=== PATIENT | female | born 1985 | race Caucasian/White ===

== ENCOUNTER → 2024-01-29 | Outpatient (CLI) | payer BC, SELFPAY ==
[2024-01-29 12:33] LABS: Absolute Lymphocyte Count 1.79 X10^3/uL (0.83-4.51); Absolute Neutrophil Count 4.3 X10^3/uL (2.0-7.7); Basophil# 0.01 X10^3/uL; Basophil% 0.1 % (0-1); Eosinophil# 0.13 X10^3/uL; Eosinophils% 1.9 % (0-5); Hematocrit 36.2 % (37-47); Hemoglobin 11.2 g/dL (12.0-15.0); Lymphocyte # 1.79 X10^3/ul (0.83-4.51); Lymphocyte % 26.7 % (19-41); Mean Corp Hgb Conc 30.9 g/dL (32-36); Mean Corpuscular Hgb 24.8 pg (27.0-32.0); Mean Corpuscular Volume 80.3 fL (81-99); Mean Platelet Vol. 10.4 fl (6.2-12.0); Monocyte# 0.45 X10^3/uL; Monocyte% 6.7 % (0-10); NRBC Flagged by Analyzer 0 % (0-5); Neutrophil # 4.31 X10^3/uL (2.7-7.7); Neutrophil % 64.3 % (47-70); Platelet Count 268 K/mm3 (150-450); RBC Distribution Width CV 13.6 % (11.6-14.6); RBC Distribution Width SD 39.7 fl (35.1-43.9); Red Blood Count 4.51 M/mm3 (4.2-5.4); White Blood Count 6.7 K/mm3 (4.4-11.0)
[2024-01-29 12:52] LABS: ALB/GLOB Ratio 0.8 RATIO (0.9-2.4); AST(SGOT) 15 U/L (15-37); Alanine Aminotransfer ALT/SGPT 21 U/L (13-56); Albumin, Serum 3.1 g/dL (3.2-5.0); Alkaline Phosphatase 114 U/L (45-117); Anion Gap 5 (5-15); BUN 7 mg/dL (7-18); BUN/Creat Ratio 10.7 RATIO (10-20); Calcium,Total 8.7 mg/dL (8.5-10.1); Chloride 107 mmol/L (98-107); Cholesterol 215 mg/dL (200); Creatinine, Serum 0.65 mg/dL (0.55-1.02); EST Glomerular Filtration Rate 109 mL/min (>60); Est Glom Filt Rate - Afr Amer 132 mL/min (>60); Globulin 3.7 g/dL (2.2-4.2); Glucose 84 mg/dL (74-106); High Density Lipoprotein 59 mg/dL; Protein, Total 6.8 g/dL (6.4-8.2); Sodium Level 136 mmol/L (136-145); T4 Free Direct 1.13 ng/dL (0.76-1.46); Triglycerides 146 mg/dL; Very Low Density Lipoprotein 29 mg/dL (5-40)
[2024-01-30 16:08] LABS: Anti-Thyroglobulin AB < 1.0 IU/mL (0.0-0.9); Thyroglobulin, Serum Qt. 2.8 ng/mL (1.5-38.5); Thyroid Peroxidase AB 199 IU/mL (0-34)
[2024-01-30 17:18] LABS: Vitamin B12 253 pg/mL (211-911)
[2024-01-30 17:20] LABS: Ferritin 4 ng/mL (8-252); Iron 30 ug/dL (50-170); Iron Binding Capacity,Total 548 ug/dL (250-450); PERCENT IRON SATURATION 5.5 % (15.0-55.0)
== END | disposition home or self-care (01) ==
LOC: MFPLAB 10:17
PROVIDERS: PCP Family Medicine; Referring Provider Family Medicine; Visit Provider Family Medicine
DX: E03.9 Hypothyroidism, unspecified (principal); D64.9 Anemia, unspecified
CPT/HCPCS: 36415; 80053; 80061; 82607; 82728; 83540; 83550; 84432; 84439; 84443; 85025; 86376; 86800

== ENCOUNTER → 2024-02-05 | Outpatient (CLI) | payer BC, SELFPAY ==
--- NOTE | 2024-02-05 15:25 | US_ITS ---
EXAM: US SOFT TISSUES HEAD AND NECK, THYROID CLINICAL INDICATION: hypothyroid, abnormal texture right side TECHNIQUE: Greyscale and color doppler imaging was performed of the thyroid gland. COMPARISON: No relevant prior studies available. FINDINGS: LEFT THYROID LOBE: The left thyroid lobe measures 3.0 x 1.1 x 0.9 cm. The left thyroid gland is diffusely heterogenous. Homogeneous echotexture with normal vascularity. No thyroid nodules are present. RIGHT THYROID LOBE: The right thyroid lobe measures 4.0 x 1.3 x 1.4 cm. The right thyroid gland is diffusely heterogenous. Homogeneous echotexture with normal vascularity. No thyroid nodules are present. ISTHMUS: The thyroid isthmus measures 0.2 cm. No thyroid nodules are present. US/Thyroid IMPRESSION: Thyroid heterogeneity. No thyromegaly. No discrete nodules identified. Electronically Signed: Timo Olmedo DO at 10:06 [facility] ,
== END | disposition home or self-care (01) ==
PROVIDERS: PCP Family Medicine; Referring Provider Family Medicine; Visit Provider Family Medicine
DX: E03.9 Hypothyroidism, unspecified (principal)
CPT/HCPCS: 76536

== ENCOUNTER → 2024-03-30 | Outpatient (CLI) | payer BC, SELFPAY ==
[2024-03-30 18:17] LABS: Absolute Lymphocyte Count 1.46 X10^3/uL (0.83-4.51); Absolute Neutrophil Count 4.4 X10^3/uL (2.0-7.7); Basophil# 0.01 X10^3/uL; Basophil% 0.2 % (0-1); Eosinophil# 0.08 X10^3/uL; Eosinophils% 1.2 % (0-5); Hematocrit 37.3 % (37-47); Hemoglobin 11.5 g/dL (12.0-15.0); Lymphocyte # 1.46 X10^3/ul (0.83-4.51); Lymphocyte % 22.5 % (19-41); Mean Corp Hgb Conc 30.8 g/dL (32-36); Mean Corpuscular Hgb 24.9 pg (27.0-32.0); Mean Corpuscular Volume 80.7 fL (81-99); Mean Platelet Vol. 10.3 fl (6.2-12.0); Monocyte# 0.51 X10^3/uL; Monocyte% 7.9 % (0-10); NRBC Flagged by Analyzer 0 % (0-5); Neutrophil # 4.41 X10^3/uL (2.7-7.7); Neutrophil % 67.9 % (47-70); Platelet Count 282 K/mm3 (150-450); RBC Distribution Width CV 14.5 % (11.6-14.6); RBC Distribution Width SD 42.1 fl (35.1-43.9); Red Blood Count 4.62 M/mm3 (4.2-5.4); White Blood Count 6.5 K/mm3 (4.4-11.0)
[2024-03-30 18:35] LABS: Ferritin 7 ng/mL (8-252); Iron 55 ug/dL (50-170); Iron Binding Capacity,Total 545 ug/dL (250-450); PERCENT IRON SATURATION 10.1 % (15.0-55.0)
== END | disposition home or self-care (01) ==
LOC: MFPLAB 15:12
PROVIDERS: PCP Family Medicine; Referring Provider Family Medicine; Visit Provider Family Medicine
DX: D50.9 Iron deficiency anemia, unspecified (principal)
CPT/HCPCS: 36415; 82728; 83540; 83550; 85025

== ENCOUNTER → 2024-12-29 | Outpatient (CLI) | payer BC, SELFPAY ==
[2024-12-29 17:50] LABS: Hematocrit 36.8 % (37-47); Hemoglobin 12.1 g/dL (12.0-15.0); Immature Granulocytes Count 0.010 X10^3/uL (0.0-0.0); Mean Corp Hgb Conc 32.9 g/dL (32-36); Mean Corpuscular Volume 83.4 fL (81-99); Mean Platelet Vol. 10.6 fl (6.2-12.0); NRBC Flagged by Analyzer 0 % (0-5); Platelet Count 227 K/mm3 (150-450); RBC Distribution Width CV 13.4 % (11.6-14.6); RBC Distribution Width SD 41.3 fl (35.1-43.9); Red Blood Count 4.41 M/mm3 (4.2-5.4); White Blood Count 5.6 K/mm3 (4.4-11.0)
[2024-12-29 18:29] LABS: AST(SGOT) 16 U/L (<=31); Alanine Aminotransfer ALT/SGPT 20 U/L (<=34); Albumin, Serum 4.2 g/dL (3.5-5.0); Alkaline Phosphatase 110 U/L (35-104); Anion Gap 11 (5-15); BUN 10 mg/dL (4-19); BUN/Creat Ratio 15.6 RATIO (10-20); Calcium,Total 9.3 mg/dL (7.6-11.0); Carbon Dioxide 24.5 mmol/L (21.0-32.0); Chloride 102 mmol/L (98-108); Globulin 2.9 g/dL (2.2-4.2); Glucose 88 mg/dL (70-99); Iron 93 ug/dL (50-170); Iron Binding Capacity,Unsat 367 ug/dL (228-428); Potassium 3.8 mmol/L (3.3-5.1); Vitamin B12 285 pg/mL (180-914)
[2024-12-29 18:30] LABS: FOLATES,SERUM (FOLIC ACID) 7.18 ng/mL (4.60-34.80)
[2024-12-29 18:54] LABS: Iron Binding Capacity,Total 460 ug/dL (250-450)
[2024-12-31 17:08] LABS: Immunoglobulin A 115 mg/dL (87-352)
== END | disposition home or self-care (01) ==
PROVIDERS: PCP Family Medicine; Visit Provider Family Medicine
DX: E06.3 Autoimmune thyroiditis (principal); D50.9 Iron deficiency anemia, unspecified
CPT/HCPCS: 36415; 80053; 82607; 82746; 82784; 83516; 83540; 83550; 84439; 84443; 85025; 86255

== ENCOUNTER → 2025-02-04 | Outpatient (CLI) | payer BC, SELFPAY ==
--- OUTSIDE RECORDS SUMMARY | 2025-02-04 11:37 | XMS RPT_ITS | CCD ---
Author Organization [facility] Care Team Providers Care Building Dismantler Name Role Phone Licha Lim Primary Care Provider Coretta Landon Attending Unavailable Coretta Landon Consulting Unavailable Request, Self Referring Unavailable Coretta Landon Primary Care Unavailable Coretta Landon Consulting Unavailable Coretta Landon Primary Care Unavailable Request, Self Referring Unavailable Coretta Landon Attending Unavailable Coretta Landon Attending Unavailable Coretta Landon Consulting Unavailable Coretta Landon Primary Care Unavailable Coretta Landon Consulting Unavailable Coretta Landon Attending Unavailable Coretta Landon Primary Care Unavailable Coretta Landon Consulting Unavailable Coretta Landon Attending Unavailable Coretta Landon Primary Care Unavailable Coretta Landon Consulting Unavailable Coretta Landon Attending Unavailable Coretta Landon Primary Care Unavailable Frank Solis Attending Unavailable Frank Solis Referring Unavailable Frank Solis Primary Care Unavailable Frank Solis Attending Unavailable Frank Solis Referring Unavailable Frank Solis Primary Care Unavailable Frank Solis Attending Unavailable Frank Solis Referring Unavailable Frank Solis Primary Care Unavailable No Family, Physician Primary Care Unavailable Allergies Allergy Classification Reported Allergen(s) Allergy Type Date of Onset Reaction(s) Facility (1 source) Amoxicillin Drug Allergy 12-01-19 16 [place], [place] (1 source) Cefaclor Drug Allergy 09-13-19 17 [place] (1 source) Penicillins Propensity to adverse reactions to drug 09-13-19 17 [place] (1 source) Sulfamethoxazole / Trimethoprim Drug Allergy 09-13-19 17 Other (See Comments) [place] (1 source) Amoxicillin-Pot Clavulanate Propensity to adverse reactions to drug 09-13-19 17 [place] (2 sources) Amoxicillin Drug Allergy 09-26-19 23 [facility] (2 sources) Cefaclor Drug Allergy 09-26-19 23 [facility] (2 sources) Clavulanate Drug Allergy 09-26-19 23 [facility] (2 sources) Penicillins Drug allergy (disorder) 09-26-19 23 [facility] (2 sources) Sulfamethoxazole Drug Allergy 09-26-19 23 [facility] (2 sources) Trimethoprim Drug Allergy 09-26-19 [facility] Medications Current Medications Medication Drug Class(es) Dates Sig (Normalized) Sig (Original) levothyroxine sodium 0.075 mg oral tablet (1 source) l-Thyroxine Start: 12-18-2019 take 1 tablet by mouth once daily levothyroxine (SYNTHROID) 75 MCG tablet Take 1 tablet by mouth daily 90 tablet 1 12/18/2019 Active Norgestimate-Eth Estradiol (SPRINTEC 28 PO) (1 source) Norgestimate-Eth Estradiol (SPRINTEC 28 PO) Take by mouth 0 Active Problems Active Problems Problem Classification Problem Date Documented Da te Episodic/Chronic Deficiency and other anemia (1 source) Iron deficiency anemia, unspecified; Translations: [Iron deficiency anemia, unspecified] Onset: 04-11-2024 Episodic Other non-traumatic joint disorders (1 source) Pain of left wrist; Translations: [Left wrist pain] Onset: 03-17-2019 03-17-2019 Thyroid disorders (4 sources) Acquired hypothyroidism; Translations: [Hypothyroidism, unspecified] Onset: 12-17-2019 12-17-2019 Chronic Unclassified (1 source) Finding of ; Translations: [Lactating mother] Onset: 09-12-2016 09-12-2016 Past or Other Problems Problem Classification Problem Date Documented Da te Episodic/Chronic Mycoses (1 source) Onychomycosis; Translations: [Onychomycosis] Onset: 09-12-2016 09-12-2016 Episodic Other hematologic conditions (1 source) H/O: anemia; Translations: [History of anemia] Onset: 09-12-2016 09-12-2016 Episodic Other nutritional; endocrine; and metabolic disorders (1 source) H/O: hypothyroidism; Translations: [History of hypothyroidism] Onset: 09-12-2016 09-12-2016 Episodic Other upper respiratory infections (1 source) Acute pharyngitis, unspecified; Translations: [Acute pharyngitis, unspecified] Onset: 10-10-2021 Episodic Residual codes; unclassified (1 source) Gestation period, 40 weeks; Translations: [40 weeks gestation of ] Onset: 12-01-2015 Resolved: 09-12-2016 09-12-2016 Episodic Unclassified (1 source) Patient encounter status; Translations: [Routine general medical examination at health care facility] Onset: 09-12-2016 Resolved: 11-05-2017 11-05-2017 Results Test Name Value Interpretation Reference Range Facil ity CBC W/Diff, Automatedon 03-13 Absolute Lymph 1.46 X10 3/uL Normal 0.83-4.51 [facility] Comment on above: Performed By: #### L 503.6030, L503.6550, L100.0100 #### [facility] [address] [place], [address] Absolute Neut 4.4 X10 3/uL Normal 2.0-7.7 [facility] Comment on above: Performed By: #### L 503.6030, L503.6550, L100.0100 #### [facility] [address] [place], [address] Basophils/100 WBC (Bld) 0.2 % Normal 0-1 [facility] Comment on above: Performed By: #### L 503.6030, L503.6550, L100.0100 #### [facility] [address] [place], [address] Eosinophils/100 WBC (Bld) 1.2 % Normal 0-5 [facility] Comment on above: Performed By: #### L 503.6030, L503.6550, L100.0100 #### [facility] [address] [place], [address] Erythrocyte distribution width (RBC) [Ratio] 14.5 % Normal 11.6-14.6 [facility] Comment on above: Performed By: #### L 503.6030, L503.6550, L100.0100 #### [facility] [address] [place], [address] Hematocrit (Bld) [Volume fraction] 37.3 % Normal 37-47 [facility] Comment on above: Performed By: #### L 503.6030, L503.6550, L100.0100 #### [facility] [address] [place], [address] Hemoglobin (Bld) [Mass/Vol] 11.5 g/dL Low 12.0-15.0 [facility] Comment on above: Performed By: #### L 503.6030, L503.6550, L100.0100 #### [facility] [address] [place], [address] IG% 0.300 Normal 0.0-0.9 [facility] Comment on above: Result Comment: IG% - Immature Granulocytes (promyelocytes, myelocytes and metamyelocytes) > 1% indicates that a LEFT SHIFT is Present. Performed By: #### L 503.6030, L503.6550, L100.0100 #### [facility] [address] [place], [address] Lymphocytes/100 WBC (Bld) 22.5 % Normal 19-41 [facility] Comment on above: Performed By: #### L 503.6030, L503.6550, L100.0100 #### [facility] [address] [place], [address] MCH (RBC) [Entitic mass] 24.9 pg Low 27.0-32.0 [facility] Comment on above: Performed By: #### L 503.6030, L503.6550, L100.0100 #### [facility] [address] [place], [address] MCHC (RBC) [Mass/Vol] 30.8 g/dL Low 32-36 [facility] Comment on above: Performed By: #### L 503.6030, L503.6550, L100.0100 #### [facility] [address] [place], [address] MCV (RBC) [Entitic vol] 80.7 fL Low 81-99 [facility] Comment on above: Performed By: #### L 503.6030, L503.6550, L100.0100 #### [facility] [address] [place], [address] Monocytes/100 WBC (Bld) 7.9 % Normal 0-10 [facility] Comment on above: Performed By: #### L 503.6030, L503.6550, L100.0100 #### [facility] [address] [place], [address] Neutrophils/100 WBC (Bld) 67.9 % Normal 47-70 [facility] Comment on above: Performed By: #### L 503.6030, L503.6550, L100.0100 #### [facility] [address] [place], [address] Nucleated RBC (Bld) [#/Vol] 0 10*3/uL Normal 0-5 [facility] Comment on above: Performed By: #### L 503.6030, L503.6550, L100.0100 #### [facility] [address] [place], [address] Platelet mean volume (Bld) [Entitic vol] 10.3 fL Normal 6.2-12.0 [facility] Comment on above: Performed By: #### L 503.6030, L503.6550, L100.0100 #### [facility] [address] [place], [address] Platelets (Bld) [#/Vol] 282 10*3/uL Normal 150-450 [facility] Comment on above: Performed By: #### L 503.6030, L503.6550, L100.0100 #### [facility] [address] [place], [address] RBC (Bld) [#/Vol] 4.62 10*6/uL Normal 4.2-5.4 [facility] Comment on above: Performed By: #### L 503.6030, L503.6550, L100.0100 #### [facility] [address] [place], [address] RDW SD 42.1 fl Normal 35.1-43.9 [facility] Comment on above: Performed By: #### L 503.6030, L503.6550, L100.0100 #### [facility] [address] [place], [address] WBC (Bld) [#/Vol] 6.5 10*3/uL Normal 4.4-11.0 [facility] Comment on above: Performed By: #### L 503.6030, L503.6550, L100.0100 #### [facility] [address] [place], [address] Ferritinon 03-30-2024 Ferritin [Mass/Vol] 7 ng/mL Low 8-252 [facility] Comment on above: Performed By: #### L 503.6030, L503.6550, L100.0100 #### [facility] [address] [place], [address] Iron+Iron Binding Capacityon 03-30-2024 Iron [Mass/Vol] 55 ug/dL Normal 50-170 [facility] Comment on above: Performed By: #### L 503.6030, L503.6550, L100.0100 #### [facility] [address] [place], [address] IRON SATURATION 10.1 Low 15.0-55.0 [facility] Comment on above: Performed By: #### L 503.6030, L503.6550, L100.0100 #### [facility] [address] [place], [address] TIBC 545 ug/dL High 250-450 [facility] Comment on above: Performed By: #### L 503.6030, L503.6550, L100.0100 #### [facility] [address] [place], [address] Thyroidon 02-05-2024 Thyroid [facility] [address] [place] [address] Thyroid MR#: [id number] Acct: [id number] Name: MAYLIN CALLAWAY Rep #: [id number] : 1985 F 38 From: Timo sam DO PCP: Dr. Frank Solis MD Status: [facility] Study: Thyroid Date of Exam: 02/05/24 Exam# [id number] Ordering Dr: Frank Solis MD [id number] EXAM: US SOFT TISSUES HEAD AND NECK, THYROID CLINICAL INDICATION: hypothyroid, abnormal texture right side TECHNIQUE: Greyscale and color doppler imaging was performed of the thyroid gland. COMPARISON: No relevant prior studies available. FINDINGS: LEFT THYROID LOBE: The left thyroid lobe measures 3.0 x 1.1 x 0.9 cm. The left thyroid gland is diffusely heterogenous. Homogeneous echotexture with normal vascularity. No thyroid nodules are present. RIGHT THYROID LOBE: The right thyroid lobe measures 4.0 x 1.3 x 1.4 cm. The right thyroid gland is diffusely heterogenous. Homogeneous echotexture with normal vascularity. No thyroid nodules are present. ISTHMUS: The thyroid isthmus measures 0.2 cm. No thyroid nodules are present. US/Thyroid IMPRESSION: Thyroid heterogeneity. No thyromegaly. No discrete nodules identified. Electronically Signed: Timo Olmedo, at 10:06 EST , CC: Dr. Frank Solis MD Fitter Helper: Signed Normal [facility] Ferritinon 01-30-2024 Ferritin [Mass/Vol] 4 ng/mL Low 8-252 [facility] Comment on above: Order Comment: SERA Deutsch ADD B12 BETHANY IBC TO BLOOD DRAWN 01/29/24Order Date: 01/27/24Order Info: [id number] - CMPOrder Info: [id number] - LIPIDOrder Info: [id number] - TSHOrder Info: [id number] - T4F Performed By: #### L 503.6030, L503.6550, L100.0100 #### [facility] [address] [place], [place], [address] Iron+Iron Binding Capacityon 01-30-2024 Iron [Mass/Vol] 30 ug/dL Low 50-170 [facility] Comment on above: Order Comment: SERA Deutsch ADD B12 BETHANY IBC TO BLOOD DRAWN 01/29/24Order Date: 01/27/24Order Info: [id number] - CMPOrder Info: [id number] - LIPIDOrder Info: [id number] - TSHOrder Info: [id number] - T4F Performed By: #### L 503.6030, L503.6550, L100.0100 #### [facility] [address] [place], [place], [address] IRON SATURATION 5.5 Low 15.0-55.0 [facility] Comment on above: Order Comment: SERA Deutsch ADD B12 BETHANY IBC TO BLOOD DRAWN 01/29/24Order Date: 01/27/24Order Info: [id number] - CMPOrder Info: [id number] - LIPIDOrder Info: [id number] - TSHOrder Info: [id number] - T4F Performed By: #### L 503.6030, L503.6550, L100.0100 #### [facility] [address] [place], [address] TIBC 548 ug/dL High 250-450 [facility] Comment on above: Order Comment: SERA Deutsch ADD B12 BETHANY IBC TO BLOOD DRAWN 01/29/24Order Date: 01/27/24Order Info: [id number] - CMPOrder Info: [id number] - LIPIDOrder Info: [id number] - TSHOrder Info: 7 - T4F Performed By: #### L 503.6030, L503.6550, L100.0100 #### [facility] [address] [place], [address] Thyroglobulin w/Anti-TG ABon 01-30-2024 Anti-TG AB < 1.0 Normal 0.0-0.9 [facility] Comment on above: Result Comment: Thyr oglobulin Antibody measured by Ivan Adrian Methodology It should be noted that the presence of thyroglobulin antibodies may not be pathogenic nor diagnostic, especially at very low levels. The assay men's garment fitter has found that four percent of individuals without evidence of thyroid disease or autoimmunity will have positive TgAb levels up to 4 IU/mL. Performed By: #### L 503.6030, L503.0105, L3300.6820, L3300.6900, L503.6550 #### [facility] [address], [address] THYROGLOB QUANT 2.8 ng/mL Normal 1.5-38.5 [facility] Comment on above: Result Comment: Acco rding to the National Academy of Clinical Biochemistry, the reference interval for Thyroglobulin (TG) should be related to euthyroid patients and not for patients who underwent thyroidectomy. TG reference intervals for these patients depend on the residual mass of the thyroid tissue left after surgery. Establishing a post-operative baseline is recommended. The assay limit of quantitation is 0.1 ng/mL Thyroglobulin measured by Ivan Adrian Immunometric Assay Performed By: #### L 503.6030, L503.0105, L3300.6820, L3300.6900, L503.6550 #### [facility] [address] [place], [place], [address] Thyroid Peroxidase ABon 12-2 THYR PEROX AB 199 IU/mL High 0-34 [facility] Comment on above: Result Comment: Perf ormed at: [facility] [id number] Logistics Planning Engineer: Brennan Alvarado PhD, Phone: [phone] Performed By: #### L 503.6030, L503.0105, L3300.6820, L3300.6900, L503.6550 #### [facility] [address] [place], [place], [address] Vitamin B12on 01-30-2024 Cobalamin (Vitamin B12) [Mass/Vol] 253 pg/mL Normal 211-911 [facility] Comment on above: Performed By: #### L 503.6030, L503.6550, L100.0100 #### [facility] [address] [place], [place], [address] CBC W/Diff, Automatedon 01-10 Absolute Lymph 1.79 X10 3/uL Normal 0.83-4.51 [facility] Comment on above: Order Comment: Order Date: 01/27/24 Order Info: [id number] - CBCD Performed By: #### L 501.9520, L506.0400, L500.4100, L500.4050, L100.0100 #### [facility] [address] [place], [address] Absolute Neut 4.3 X10 3/uL Normal 2.0-7.7 [facility] Comment on above: Order Comment: Order Date: 01/27/24 Order Info: [id number]- - CBCD Performed By: #### L 501.9520, L506.0400, L500.4100, L500.4050, L100.0100 #### [facility] [address] [place], [address] Basophils/100 WBC (Bld) 0.1 % Normal 0-1 [facility] Comment on above: Order Comment: Order Date: 01/27/24 Order Info: 018- - CBCD Performed By: #### L 501.9520, L506.0400, L500.4100, L500.4050, L100.0100 #### [facility] [address] [place], [address] Eosinophils/100 WBC (Bld) 1.9 % Normal 0-5 [facility] Comment on above: Order Comment: Order Date: 01/27/24 Order Info: 018- - CBCD Performed By: #### L 501.9520, L506.0400, L500.4100, L500.4050, L100.0100 #### [facility] [address] [place], [address] Erythrocyte distribution width (RBC) [Ratio] 13.6 % Normal 11.6-14.6 [facility] Comment on above: Order Comment: Order Date: 01/27/24 Order Info: 018- - CBCD Performed By: #### L 501.9520, L506.0400, L500.4100, L500.4050, L100.0100 #### [facility] [address] [place], [address] Hematocrit (Bld) [Volume fraction] 36.2 % Low 37-47 [facility] Comment on above: Order Comment: Order Date: 01/27/24 Order Info: [id number] - CBCD Performed By: #### L 501.9520, L506.0400, L500.4100, L500.4050, L100.0100 #### [facility] [address] [place], [address] Hemoglobin (Bld) [Mass/Vol] 11.2 g/dL Low 12.0-15.0 [facility] Comment on above: Order Comment: Order Date: 01/27/24 Order Info: [id number] - CBCD Performed By: #### L 501.9520, L506.0400, L500.4100, L500.4050, L100.0100 #### [facility] [address] [place], [address] IG% 0.300 Normal 0.0-0.9 [facility] Comment on above: Order Comment: Order Date: 01/27/24 Order Info: 018- - CBCD Result Comment: IG% - Immature Granulocytes (promyelocytes, myelocytes and metamyelocytes) > 1% indicates that a LEFT SHIFT is Present. Performed By: #### L 501.9520, L506.0400, L500.4100, L500.4050, L100.0100 #### [facility] [address] [place], [address] Lymphocytes/100 WBC (Bld) 26.7 % Normal 19-41 [facility] Comment on above: Order Comment: Order Date: 01/27/24 Order Info: [id number]- - CBCD Performed By: #### L 501.9520, L506.0400, L500.4100, L500.4050, L100.0100 #### [facility] [address] [place], [address] MCH (RBC) [Entitic mass] 24.8 pg Low 27.0-32.0 [facility] Comment on above: Order Comment: Order Date: 01/27/24 Order Info: [id number] - CBCD Performed By: #### L 501.9520, L506.0400, L500.4100, L500.4050, L100.0100 #### [facility] [address] [place], [address] MCHC (RBC) [Mass/Vol] 30.9 g/dL Low 32-36 [facility] Comment on above: Order Comment: Order Date: 01/27/24 Order Info: [id number] - CBCD Performed By: #### L 501.9520, L506.0400, L500.4100, L500.4050, L100.0100 #### [facility] [address] [place], [address] MCV (RBC) [Entitic vol] 80.3 fL Low 81-99 [facility] Comment on above: Order Comment: Order Date: 01/27/24 Order Info: 018- - CBCD Performed By: #### L 501.9520, L506.0400, L500.4100, L500.4050, L100.0100 #### [facility] [address] [place], [address] Monocytes/100 WBC (Bld) 6.7 % Normal 0-10 [facility] Comment on above: Order Comment: Order Date: 01/27/24 Order Info: 018- - CBCD Performed By: #### L 501.9520, L506.0400, L500.4100, L500.4050, L100.0100 #### [facility] [address] [place], [address] Neutrophils/100 WBC (Bld) 64.3 % Normal 47-70 [facility] Comment on above: Order Comment: Order Date: 01/27/24 Order Info: 0184- - CBCD Performed By: #### L 501.9520, L506.0400, L500.4100, L500.4050, L100.0100 #### [facility] [address] [place], [address] Nucleated RBC (Bld) [#/Vol] 0 10*3/uL Normal 0-5 [facility] Comment on above: Order Comment: Order Date: 01/27/24 Order Info: [id number] - CBCD Performed By: #### L 501.9520, L506.0400, L500.4100, L500.4050, L100.0100 #### [facility] [address] [place], [address] Platelet mean volume (Bld) [Entitic vol] 10.4 fL Normal 6.2-12.0 [facility] Comment on above: Order Comment: Order Date: 01/27/24 Order Info: [id number] - CBCD Performed By: #### L 501.9520, L506.0400, L500.4100, L500.4050, L100.0100 #### [facility] [address] [place], [address] Platelets (Bld) [#/Vol] 268 10*3/uL Normal 150-450 [facility] Comment on above: Order Comment: Order Date: 01/27/24 Order Info: 0184- - CBCD Performed By: #### L 501.9520, L506.0400, L500.4100, L500.4050, L100.0100 #### [facility] [address] [place], [address] RBC (Bld) [#/Vol] 4.51 10*6/uL Normal 4.2-5.4 [facility] Comment on above: Order Comment: Order Date: 01/27/24 Order Info: 0184- - CBCD Performed By: #### L 501.9520, L506.0400, L500.4100, L500.4050, L100.0100 #### [facility] [address] [place], [address] RDW SD 39.7 fl Normal 35.1-43.9 [facility] Comment on above: Order Comment: Order Date: 01/27/24 Order Info: 0184- - CBCD Performed By: #### L 501.9520, L506.0400, L500.4100, L500.4050, L100.0100 #### [facility] [address] [place], [place], [address] WBC (Bld) [#/Vol] 6.7 10*3/uL Normal 4.4-11.0 [facility] Comment on above: Order Comment: Order Date: 01/27/24 Order Info: [id number] - CBCD Performed By: #### L 501.9520, L506.0400, L500.4100, L500.4050, L100.0100 #### [facility] [address] [place], [address] Comprehensive Metabolic Prof ilon 01-29-2024 Albumin [Mass/Vol] 3.1 g/dL Low 3.2-5.0 [facility] Comment on above: Order Comment: Order Date: 01/27/24 Order Info: [id number] - CMP Order Info: [id number] - LIPID Order Info: [id number] - TSH Order Info: [id number] - T4F Performed By: #### L 501.9520, L506.0400, L500.4100, L500.4050, L100.0100 #### [facility] [address] [place], [address] Albumin/Globulin [Mass ratio] 0.8 {ratio} Low 0.9-2.4 [facility] Comment on above: Order Comment: Order Date: 01/27/24 Order Info: [id number] - CMP Order Info: [id number] - LIPID Order Info: [id number] - TSH Order Info: [id number] - T4F Performed By: #### L 501.9520, L506.0400, L500.4100, L500.4050, L100.0100 #### [facility] [address] [place], [place], [address] ALK P 114 U/L Normal 45-117 [facility] Comment on above: Order Comment: Order Date: 01/27/24 Order Info: [id number] - CMP Order Info: [id number] - LIPID Order Info: [id number] - TSH Order Info: [id number] - T4F Performed By: #### L 501.9520, L506.0400, L500.4100, L500.4050, L100.0100 #### [facility] [address] [place], [address] ALT [Catalytic activity/Vol] 21 U/L Normal 13-56 [facility] Comment on above: Order Comment: Order Date: 01/27/24 Order Info: [id number] - CMP Order Info: [id number] - LIPID Order Info: [id number] - TSH Order Info: [id number] - T4F Performed By: #### L 501.9520, L506.0400, L500.4100, L500.4050, L100.0100 #### [facility] [address] [place], [address] AST [Catalytic activity/Vol] 15 U/L Normal 15-37 [facility] Comment on above: Order Comment: Order Date: 01/27/24 Order Info: 86-1 - CMP Order Info: [id number] - LIPID Order Info: [id number] - TSH Order Info: [id number] - T4F Performed By: #### L 501.9520, L506.0400, L500.4100, L500.4050, L100.0100 #### [facility] [address] [place], [address] Bilirubin [Mass/Vol] 0.40 mg/dL Normal 0.20-1.00 [facility] Comment on above: Order Comment: Order Date: 01/27/24 Order Info: 0786-1 - CMP Order Info: [id number] - LIPID Order Info: 3016-3 - TSH Order Info: 3024-7 - T4F Result Comment: For patients on eltrombopag therapy, use of Dimension [place] TBIL is not recommended. Performed By: #### L 501.9520, L506.0400, L500.4100, L500.4050, L100.0100 #### [facility] [address] [place], [address] BUN/CRE 10.7 RATIO Normal 10-20 [facility] Comment on above: Order Comment: Order Date: 01/27/24 Order Info: 785-1 - CMP Order Info: [id number] - LIPID Order Info: [id number] - TSH Order Info: 3024-7 - T4F Performed By: #### L 501.9520, L506.0400, L500.4100, L500.4050, L100.0100 #### [facility] [address] [place], [address] CA,Total 8.7 mg/dL Normal 8.5-10.1 [facility] Comment on above: Order Comment: Order Date: 01/27/24 Order Info: 785-1 - CMP Order Info: [id number] - LIPID Order Info: 3 - TSH Order Info: 3024-7 - T4F Performed By: #### L 501.9520, L506.0400, L500.4100, L500.4050, L100.0100 #### [facility] [address] [place], [address] Chloride [Moles/Vol] 107 mmol/L Normal 98-107 [facility] Comment on above: Order Comment: Order Date: 01/27/24 Order Info: 785- - CMP Order Info: [id number] - LIPID Order Info: 3013 - TSH Order Info: 3024-7 - T4F Performed By: #### L 501.9520, L506.0400, L500.4100, L500.4050, L100.0100 #### [facility] [address] [place], [address] CO2 [Moles/Vol] 25.0 mmol/L Normal 21.0-32.0 [facility] Comment on above: Order Comment: Order Date: 01/27/24 Order Info: 07-1 - CMP Order Info: [id number] - LIPID Order Info: 3013 - TSH Order Info: 3024-7 - T4F Performed By: #### L 501.9520, L506.0400, L500.4100, L500.4050, L100.0100 #### [facility] [address] [place], [place], [address] Creatinine [Mass/Vol] 0.65 mg/dL Normal 0.55-1.02 [facility] Comment on above: Order Comment: Order Date: 01/27/24 Order Info: 785-1 - CMP Order Info: [id number] - LIPID Order Info: 3 - TSH Order Info: 3023-08 - T4F Result Comment: The validity of the calculated GFR GFRAA in patients over 70 years has not been determined. Clinical correlation is essential. Performed By: #### L 501.9520, L506.0400, L500.4100, L500.4050, L100.0100 #### [facility] [address] [place], [place], [id number] EST GFR - AA 132 mL/min Normal >60 [facility] Comment on above: Order Comment: Order Date: 01/27/24 Order Info: 785-02 - CMP Order Info: - LIPID Order Info: [id number] - TSH Order Info: 3023-08 - T4F Result Comment: Afri can [place] GFR Calc Performed By: #### L 501.9520, L506.0400, L500.4100, L500.4050, L100.0100 #### [facility] [address] [place], [address] GAP 5 Normal 5-15 [facility] Comment on above: Order Comment: Order Date: 01/27/24 Order Info: 785-02 - CMP Order Info: - LIPID Order Info: 3 - TSH Order Info: 3023-08 - T4F Performed By: #### L 501.9520, L506.0400, L500.4100, L500.4050, L100.0100 #### [facility] [address] [place], [address] GFR/1.73 sq M.predicted among non-blacks MDRD (S/P/Bld) [Vol rate/Area] 109 mL/min/{1.73_m2} Normal >60 [facility] Comment on above: Order Comment: Order Date: 01/27/24 Order Info: 0786-1 - CMP Order Info: [id number] - LIPID Order Info: [id number] - TSH Order Info: 3024-7 - T4F Result Comment: Non- GFR Calc Performed By: #### L 501.9520, L506.0400, L500.4100, L500.4050, L100.0100 #### [facility] [address] [place], [address] Globulin (S) [Mass/Vol] 3.7 g/dL Normal 2.2-4.2 [facility] Comment on above: Order Comment: Order Date: 01/27/24 Order Info: 07-1 - CMP Order Info: [id number] - LIPID Order Info: 6-3 - TSH Order Info: 3024-7 - T4F Performed By: #### L 501.9520, L506.0400, L500.4100, L500.4050, L100.0100 #### [facility] [address] [place], [address] Glucose [Mass/Vol] 84 mg/dL Normal 74-106 [facility] Comment on above: Order Comment: Order Date: 01/27/24 Order Info: 0786-1 - CMP Order Info: [id number] - LIPID Order Info: 3016-3 - TSH Order Info: 3024-7 - T4F Performed By: #### L 501.9520, L506.0400, L500.4100, L500.4050, L100.0100 #### [facility] [address] [place], [address] Potassium [Moles/Vol] 4.0 mmol/L Normal 3.5-5.1 [facility] Comment on above: Order Comment: Order Date: 01/27/24 Order Info: 785-1 - CMP Order Info: [id number] - LIPID Order Info: [id number] - TSH Order Info: 3024-7 - T4F Performed By: #### L 501.9520, L506.0400, L500.4100, L500.4050, L100.0100 #### [facility] [address] [place], [address] Sodium [Moles/Vol] 136 mmol/L Normal 136-145 [facility] Comment on above: Order Comment: Order Date: 01/27/24 Order Info: 785- - CMP Order Info: [id number] - LIPID Order Info: 3 - TSH Order Info: 3024-7 - T4F Performed By: #### L 501.9520, L506.0400, L500.4100, L500.4050, L100.0100 #### [facility] [address] [place], [address] T PROT 6.8 g/dL Normal 6.4-8.2 [facility] Comment on above: Order Comment: Order Date: 01/27/24 Order Info: 785- - CMP Order Info: [id number] - LIPID Order Info: [id number] - TSH Order Info: 3024-7 - T4F Performed By: #### L 501.9520, L506.0400, L500.4100, L500.4050, L100.0100 #### [facility] [address] [place], [address] Urea nitrogen [Mass/Vol] 7 mg/dL Normal 7-18 [facility] Comment on above: Order Comment: Order Date: 01/27/24 Order Info: 07-1 - CMP Order Info: [id number] - LIPID Order Info: [id number] - TSH Order Info: 3024-7 - T4F Performed By: #### L 501.9520, L506.0400, L500.4100, L500.4050, L100.0100 #### [facility] [address] [place], [address] Lipid Profileon 01-29-2024 Cholesterol [Mass/Vol] 215 mg/dL High 200 [facility] Comment on above: Order Comment: Order Date: 01/27/24 Order Info: 785-1 - CMP Order Info: [id number] - LIPID Order Info: 3 - TSH Order Info: 3023-08 - T4F Result Comment: <200 mg/dL Desirable 200-240 mg/dL Borderline >240 mg/dL High Risk Performed By: #### L 501.9520, L506.0400, L500.4100, L500.4050, L100.0100 #### [facility] [address] [place], [address] Cholesterol in HDL [Mass/Vol] 59 mg/dL Normal [facility] Comment on above: Order Comment: Order Date: 01/27/24 Order Info: 785-02 - CMP Order Info: - LIPID Order Info: [id number] - TSH Order Info: 3023-08 T4F Result Comment: The drugs N-Acetylcysteine and Metamizole may falsely depress this assay. Reference Range HDL <40 mg/dL Low HDL Cholesterol HDL >or= 60 mg/dL High HDL Cholesterol Performed By: #### L 501.9520, L506.0400, L500.4100, L500.4050, L100.0100 #### [facility] [address] [place], [address] Cholesterol in LDL [Mass/Vol] 127 mg/dL Normal 0-130 [facility] Comment on above: Order Comment: Order Date: 01/27/24 Order Info: 785-02 - CMP Order Info: - LIPID Order Info: 3 - TSH Order Info: 3023-08 T4F Performed By: #### L 501.9520, L506.0400, L500.4100, L500.4050, L100.0100 #### [facility] [address] [place], [address] Cholesterol in VLDL [Mass/Vol] 29 mg/dL Normal 5-40 [facility] Comment on above: Order Comment: Order Date: 01/27/24 Order Info: 0786- - CMP Order Info: [id number] - LIPID Order Info: 6-3 - TSH Order Info: 7 - T4F Performed By: #### L 501.9520, L506.0400, L500.4100, L500.4050, L100.0100 #### [facility] [address] [place], [address] Triglyceride [Mass/Vol] 146 mg/dL Normal [facility] Comment on above: Order Comment: Order Date: 01/27/24 Order Info: 07 - CMP Order Info: - LIPID Order Info: 3 - TSH Order Info: 7 - T4F Result Comment: The drugs N-Acetylcysteine and Metamizole may falsely depress this assay. Serum Triglycerides Reference Interval Normal <150 mg/dL Borderline high 150 - 199 mg/dL High 200 - 499 mg/dL Very High > or = 500 mg/dL Performed By: #### L 501.9520, L506.0400, L500.4100, L500.4050, L100.0100 #### [facility] [address] [place], [address] T4 Free Directon 01-29-2024 T4 FREE DIRECT 1.13 ng/dL Normal 0.76-1.46 [facility] Comment on above: Order Comment: Order Date: 01/27/24 Order Info: 0786 - CMP Order Info: [id number] - LIPID Order Info: [id number] - TSH Order Info: 7 - T4F Performed By: #### L 501.9520, L506.0400, L500.4100, L500.4050, L100.0100 #### [facility] [address] [place], [address] Thyroid Stim Hormone (TSH)on 01-29-2024 TSH 5.020 uIU/mL High 0.358-3.740 [facility] Comment on above: Order Comment: Order Date: 01/27/24 Order Info: 0786-1 - CMP Order Info: [id number] - LIPID Order Info: [id number] - TSH Order Info: 3024-7 - T4F Performed By: #### L 501.9520, L506.0400, L500.4100, L500.4050, L100.0100 #### [facility] [address] [place], [address] THYROID STIMULATING HORMONEo n 02-14-2023 THYROID STIMULATING HORMONE 4.00 uIU/mL Normal 0.27-4.20 [facility] Comment on above: Performed By: #### T SH #### [facility] CLIA:[id number] [address] [place] [address] FREE T4 (FREE THYROXINE)on Free T4 [Mass/Vol] 1.20 ng/dL Normal 0.93-1.7 [facility] Comment on above: Performed By: #### T 4F, TSH #### [facility] CLIA:[id number] [address] [place] [address] THYROID STIMULATING HORMONEo n 11-22-2022 THYROID STIMULATING HORMONE 4.91 uIU/mL High 0.27-4.20 [facility] Comment on above: Performed By: #### T 4F, TSH #### [facility] CLIA:[id number] [address] [place] [address] FREE T4 (FREE THYROXINE)on 0 09-25-2022 Free T4 [Mass/Vol] 1.19 ng/dL Normal 0.93-1.7 [facility] Comment on above: Performed By: #### T SH, T4F #### [facility] CLIA:[id number] [address] [place] [address] THYROID STIMULATING HORMONEo n 09-25-2022 THYROID STIMULATING HORMONE 6.11 uIU/mL High 0.27-4.20 [facility] Comment on above: Performed By: #### T SH, T4F #### [facility] CLIA:[id number] [address] [place] [address] Encounters Encounter Date Encounter Type Care Provider Facility Start: 09-08-2024 ambulatory Physician Olya [facility] Start: 03-30-2024 End: 03-30-2024 ambulatory [facility] Facility:[facility] Start: 02-05-2024 End: 02-05-2024 ambulatory [facility] Facility:[facility] Start: 01-29-2024 End: 01-29-2024 ambulatory [facility] Facility:[facility] Start: 02-14-2023 End: 02-14-2023 ambulatory [facility] Facility:[facility] Start: 11-22-2022 End: 11-22-2022 ambulatory [facility] Facility:[facility] Start: 09-25-2022 End: 09-25-2022 ambulatory Coretta Landon Facility:[facility] Start: 09-25-2022 Encounter for genera l adult medical examination without abnormal findings Coretta Landon [facility] Start: 08-20-2022 ambulatory Coretta Landon Facility :[facility] Start: 10-10-2021 End: 10-10-2021 ambulatory Coretta Landon Facility:[facility] Start: 02-21-2020 End: 02-21-2020 Subsequent hospital visit by physician Licha Lim [facility] Plan of Treatment Date Care Activity Detail Author Start: 09-12-2026 DTaP/Tdap/Td vaccine (2 - Td) DTaP/Tdap/Td vaccine (2 - Td) [place] Start: 01-28-2023 Screening for malign ant neoplasm of cervix Cervical cancer screen [place], [place] Start: 12-16-2020 TSH Qn TSH testing [place], [place] Start: 06-22-2020 End: 06-22-2020 Office Visit 06/22/2020 Office Visit Family [facility] Licha Lim, 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 [address] [place] [address] [phone] [facility] Start: 10-12-2019 Influenza vaccination Flu vaccine (# 1) [place], [place] Start: 1988 Varicella vaccine (1 of 2 - 2-dose childhood series) Varicella vaccine (1 of 2 - 2-dose childhood series) [place], [place] Start: 1987 Hepatitis C screening Hepatitis C sc [facility] [place], [place] End: 02-21-2020 Human papillomavirus (HPV) DNA probe cervical brush high risk Human papillomavirus (HPV) DNA probe cervical brush high risk Lab Routine Once for 1 Occurrences starting 02/21/2020 until 02/21/2020 [place] Comment on above: Once for 1 Occurrenc es starting 02/21/2020 until 02/21/2020 Human papillomavirus (HPV) DNA probe cervical brush high risk Human papillomavirus (HPV) DNA probe cervical brush high risk Lab Routine 02/21/2020 9:00 AM EST [place] Immunizations Immunization Date Immunization Notes Care Provider Fa paloma 09-12-2016 tetanus toxoid, redu mary lou diphtheria toxoid, and acellular pertussis vaccine, adsorbed Lichaapple Lim [place], [place] Payers Date Payer Category Payer Unknown [id number] 2024 Unknown [id number] 2021 Self-pay 2021 Medicaid [id number] 2019 Unknown [id number] 2016 Unknown [id number] 1. [id number] 1987 Unknown [id number] 2.16. [id number] Unknown [id number] 2.16.8 [id number] Unknown [id number] 2.16.8 [id number] Unknown [id number] 2.16.8 [id number] Unknown [id number] 2.16.8 [id number] Unknown [id number] 2.16.8 [id number] Unknown [id number] 2.16.8 [id number] Unknown [id number] 2.16.8 40.1.647136.3.579.2.462 Unknown [id number] 2.16.8 [id number] Unknown [id number] 2.16.8 [id number] Social History Date Type Detail Facility [facility] [place] Start: 12-17-2019 Tobacco use and exposure Never used [place] Start: 12-17-2019 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 intake 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) [place] Sex Assigned At Not on file [place] Advance Directives No Advanced Directives Records FoundDocuments on File Type Date Recorded Patient Seo Professional Expl anation ACP-Advance Directive ACP-Power of Superintendent Building Latest Code Status on File Code Status Date Activated Date Inactivated Comments Full Code 12/02/2015 1:53 AM 12/03/2015 2:12 PM Full Code 12/01/2015 9:20 AM 12/02/2015 1:53 AM Summary Purpose Family History No Family History Records FoundNo Family History Records FoundNo Family History Records FoundNo Family History Records Found Additional Source Comments INFORMATION SOURCE (unrecogn ized section and content) DATE CREATED AUTHOR 09/26/2022 [facility] DATE CREATED AUTHOR AUTHOR'S ORGANIZ ATION [facility]20[facility] DATE CREATED AUTHOR AUTHOR'S ORGANIZ ATION 04/12/2024 [facility] DATE CREATED AUTHOR AUTHOR'S ORGANIZ ATION 09/11/2024 [facility] ulatory FOR RECORDS PERTAINING TO PATIENTS WHO ARE OR HAVE BEEN ENROLLED IN A CHEMICAL DEPENDENCY/SUBSTANCEABUSE PROGRAM, SOME INFORMATION MAY BE OMITTED. This clinical summary was aggregated from multiple sources. Caution should be exercised in using it in the provision of clinical care. This summary normalizes information from multiple sources, and as a consequence, information in this document may materially change the coding, format and clinical context of patient data. In addition, data may be omitted in some cases. CLINICAL DECISIONS SHOULD BE BASED ON THE PRIMARY CLINICAL RECORDS. [facility] [employer] [facility] provides no warranty or guarantee of the accuracy or completeness of information in this document.
[2025-02-04 13:35] LABS: Hematocrit 37.8 % (37-47); Hemoglobin 12.0 g/dL (12.0-15.0); Immature Granulocytes Count 0.030 X10^3/uL (0.0-0.0); Mean Corp Hgb Conc 31.7 g/dL (32-36); Mean Corpuscular Volume 84.0 fL (81-99); Mean Platelet Vol. 10.8 fl (6.2-12.0); NRBC Flagged by Analyzer 0 % (0-5); Platelet Count 258 K/mm3 (150-450); RBC Distribution Width CV 13.7 % (11.6-14.6); RBC Distribution Width SD 42.2 fl (35.1-43.9); Red Blood Count 4.50 M/mm3 (4.2-5.4); White Blood Count 7.8 K/mm3 (4.4-11.0)
[2025-02-04 13:52] LABS: Iron 46 ug/dL (50-170); Iron Binding Capacity,Unsat 418 ug/dL (228-428)
[2025-02-04 14:35] LABS: Iron Binding Capacity,Total 464 ug/dL (250-450)
== END | disposition home or self-care (01) ==
LOC: MFPLAB 11:25
PROVIDERS: PCP Family Medicine; Visit Provider Family Medicine
DX: D50.9 Iron deficiency anemia, unspecified (principal)
CPT/HCPCS: 36415; 83540; 83550; 85025